=== PATIENT | female | born 1985 | race Caucasian/White ===

== ENCOUNTER 2016-09-17 01:55 | Emergency (ER) | payer MEDICAID, OTHER ==
[~2016-09-17] VITALS: Ht 160 cm; Wt 95.0 kg
[2016-09-17] MEDS ORDERED: PROAAER10 INH (02:10)
[2016-09-17] MEDS ORDERED: ALBU83IN INH (02:10)
[2016-09-17] MEDS ORDERED: NS 1,000 ML IV ONE (04:00)
[2016-09-17 04:05] LABS: BASO # 0.1 K/mm3 (0.0-0.2); BASO % 0.7 % (0.0-1.0); EOS # 0.2 K/mm3 (0.0-0.50); EOS % 1.3 % (0.0-3.0); LARGE UNSTAINED CELL # 0.1 K/mm3 (0.0-0.4); LARGE UNSTAINED CELL % 0.9 % (0.0-4.0); LYMPH # 1.9 K/mm3 (1.5-6.5); LYMPH % 13.3 % (24.0-44.0); MEAN CORPUSCULAR HEMOGLOBIN 30.5 pg (27.0-33.0); MEAN CORPUSCULAR VOLUME 87.1 fl (80.0-96.0); MONO # 0.6 K/mm3 (0.0-0.8); MONO % 3.9 % (0.0-5.0); NEUTROPHILS # 11.4 K/mm3 (1.8-7.7); PLATELET COUNT, AUTOMATED 260 k/mm3 (150-450); RED CELL DISTRIBUTION WIDTH 12.3 % (11.5-14.5); WHITE BLOOD COUNT 14.2 K/mm3 (4.0-10.0)
[2016-09-17 04:19] LABS: CONTROL LINE HCG INT CTR LINE PRESENT
[2016-09-17 04:25] LABS: ANION GAP 11 MEQ/L (8-16); BLOOD UREA NITROGEN 7 MG/DL (7-18); CALCIUM LEVEL 8.7 MG/DL (8.5-10.1); CARBON DIOXIDE LEVEL 24 MEQ/L (21-32); CHLORIDE LEVEL 108 MEQ/L (98-107); GLOMERULAR FILTRATION RATE > 60.0 (>60); GLUCOSE, FASTING 101 MG/DL (70-105); POTASSIUM SERUM 3.3 MEQ/L (3.5-5.1); SODIUM LEVEL 143 MEQ/L (136-145)
[2016-09-17 06:35] VITALS: BP 121/89
--- NOTE | 2016-09-17 07:31 | ECGEPIP ---
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 RBBB NONSPECIFIC T-WAVE ABNORMALITY NO PRIORS Electronically Signed On 09-17-2016 7:31:00 EDT by Bong Strong
--- NOTE | 2016-09-17 09:24 | REP ---
CHEST PA AND LATERAL: 09/17/2016. CLINICAL HISTORY: Dyspnea, cough. FINDINGS: There are no prior studies. The lungs are well inflated. There are a few cuffed bronchi in the perihilar regions and streaky densities suggesting bronchitis or reactive airway disease. No dense consolidation or pleural effusion. No cardiomegaly, vascular redistribution or pulmonary edema. There is no mediastinal or hilar adenopathy or mass evident. Airway and aorta unremarkable. Bones intact. No free air under the diaphragm. IMPRESSION: 1. Perihilar changes of bronchitis or reactive airway disease without dense consolidation, effusion or other acute finding. Signed by Kristopher Guevara MD 09/17/2016 10:54 A
== END 2016-09-17 06:38 | disposition home or self-care (01) ==
LOC: M ED 02:25
DX: R06.02 Shortness of breath (principal); R00.0 Tachycardia, unspecified; R07.89 Other chest pain; F17.210 Nicotine dependence, cigarettes, uncomplicated; Z88.0 Allergy status to penicillin

== ENCOUNTER 2021-05-21 21:30 | Emergency (ER) | payer OTHER, SELFPAY ==
[~2021-05-21] VITALS: Ht 160 cm; Wt 90.9 kg
[~2021-05-21 21:30] MED LIST: ALBU83IN INH; PROAAER10 INH
[2021-05-21 21:31] VITALS: BP 147/77
== END 2021-05-21 23:30 | disposition home or self-care (01) ==
LOC: M ED 21:30
DX: S93.402A Sprain of unspecified ligament of left ankle, initial encounter (principal); W00.0XXA Fall on same level due to ice and snow, initial encounter; Y92.009 Unspecified place in unspecified non-institutional (private) residence as the place of occurrence of the external cause; Y93.9 Activity, unspecified; Y99.9 Unspecified external cause status; J45.909 Unspecified asthma, uncomplicated; F17.200 Nicotine dependence, unspecified, uncomplicated; Z88.0 Allergy status to penicillin